=== PATIENT | female | born 1945 | race Caucasian/White ===

== ENCOUNTER → 2017-04-01 | Outpatient (CLI) | payer MEDICARE, OTHER ==
[~2017-04-01] MED LIST: ASPIR 8181 MG PO; ASPIRIN81 M2 PO; BENGAY GREASELE57 GM TOP; CARAFATE 1 GM TA1 G1 PO; CENTRUM SILVER1 EAC4 PO; ESCITALOPRAM OXA5 MG PO; LEXAPRO5 MG PO; MOBIC7.5 MG PO; PREVACID15 MG PO; PROTONIX 20 MG20 M1 PO; PROTONIX40 M1 PO; STATIN; TUMS PO; ZOCOR5 MG PO
== END ==
LOC: M.RAD 10:17
DX: R07.9 Chest pain, unspecified (principal); Z90.49 Acquired absence of other specified parts of digestive tract

== ENCOUNTER 2017-04-07 08:08 | Inpatient (IN) | payer MEDICARE, OTHER ==
[~2017-04-07] VITALS: Ht 160 cm; Wt 90.3 kg
--- NOTE | ~2017-04-07 | PROC ---
[address] [address] PROCEDURE REPORT Name: TRINITY CULLEN Room: [address] IN .R.#: [id number] Admission: 04/07/17 Attend Phys: Seamus Wong Discharge: 04/10/17 Date of : 45 Report #: [id number] THIS REPORT FOR: //name// For additional GI report details, please see the Provation report in Perceptive 7 content. By: 1327Medical Records Staff OTILIA /ALAN
[~2017-04-07 08:08] MED LIST changes: -BENGAY GREASELE57 GM TOP; -CARAFATE 1 GM TA1 G1 PO; -CENTRUM SILVER1 EAC4 PO; -LEXAPRO5 MG PO; -PREVACID15 MG PO; -PROTONIX40 M1 PO; -STATIN; -TUMS PO; -ZOCOR5 MG PO
[2017-04-07 08:11] VITALS: BP 136/70
[2017-04-07] MEDS ORDERED: CARAFATE 1 GM TA1 G1 PO (08:13)
[2017-04-07] MEDS ORDERED: LEXAPRO5 MG PO (08:14)
[2017-04-07] MEDS ORDERED: STATIN (08:14)
[2017-04-07] MEDS ORDERED: PREVACID15 MG PO (08:14)
[2017-04-07 08:35] LABS: ABSOLUTE EOSINOPHILS 0.1 thou/uL (0.0-0.7); EOSINOPHILS 1.4 %; NUCLEATED RBCS 0 /100WBC
[2017-04-07 08:38] LABS: ABSOLUTE BASOPHILS 0.1 thou/uL (0.0-0.2); ABSOLUTE MONOCYTES 0.5 thou/uL (0.0-1.2); BASOPHILS 0.8 %; HEMATOCRIT 39.5 % (37.0-47.0); HEMOGLOBIN 14.1 gm/dL (12.0-15.0); LYMPHOCYTES 34.3 %; MCH 32.1 pg (26.0-34.0); MCHC 35.7 g/dL (28.0-37.0); MCV 90.1 fL (80.0-100.0); MONOCYTES 5.9 %; PLATELET COUNT* 244 thou/uL (150-400); POLYS 57.6 %; RBC 4.39 mil/uL (4.20-5.00); RDW-CV 14.2 % (10.5-14.5); WBC 8.8 thou/uL (4.0-11.0)
[2017-04-07 08:47] LABS: APTT 24.3 Seconds (25.0-31.3); INR 1.1; PROTIME 10.6 Seconds (9.20-11.50)
[2017-04-07 08:49] LABS: ANION GAP 9 mmol/L (7-16); BUN 16 mg/dL (7-18); CALCIUM 9.2 mg/dL (8.5-10.1); CHLORIDE 103 mmol/L (98-107); CO2 25 mmol/L (21-32); CREATININE 1.1 mg/dL (0.6-1.3); GLUCOSE 133 mg/dL (70-99); POTASSIUM 3.6 mmol/L (3.5-5.1); SODIUM 137 mmol/L (136-145)
[2017-04-07 08:53] LABS: ALBUMIN 3.7 g/dL (3.4-5.0); ALKALINE PHOSPHATASE 54 U/L (46-116); NT-PRO BRAIN NAT PEPTIDE 19 pg/mL (<300); SGOT 15 U/L (15-37); SGPT 24 U/L (30-65); TOTAL BILIRUBIN 0.4 mg/dL (<0.1-1.0); TOTAL PROTEIN 7.4 g/dL (6.4-8.2); TROPONIN-I LEVEL <0.06 ng/mL (<0.06)
--- NOTE | 2017-04-07 14:33 | EKG ---
[place] [address] ELECTROCARDIOGRAM REPORT Name: TRINITY CULLEN Room: [place] [address] ADM IN [facility]#: [id number] Admission: 04/07/17 Attend Phys: Seamus Wong Discharge: Date of : 45 Report #: [id number] THIS REPORT FOR: //name// [facility] ED Test Date: 2017-04-07 Test Time: 08:13:31 Pat Name: TRINITY OHARALEY Department: Room: [facility] Gender: F Composition Worker: Ngozi LEE : 1945 Requested By: Estrella Hernandez Order Number: [id number] MD: Alfonzo Garcia Measurements Intervals [place] Rate: 73 P: 53 MD: 151 QRS: 23 QRSD: 99 T: 31 QT: 394 QTc: 435 Interpretive Statements Sinus rhythm No previous ECG available for comparison Electronically Signed On 04-07-2017 14:33:38 SOFTWARE DEVELOPER CONSULTANT by Alfonzo Garcia [email or web address] <ELECTRONICALLY SIGNED> By: Alfonzo Garcia MD, [facility] 04/07/17 1433 0813 2 Alfonzo Garcia MD, FACC /EPI
[2017-04-07 17:15] VITALS: BP 123/74
[2017-04-07 17:50] VITALS: BP 131/80
[2017-04-07] MEDS ORDERED: ZOCOR5 MG PO (17:59)
[2017-04-07] MEDS ORDERED: CENTRUM SILVER1 EAC4 PO (18:00)
[2017-04-07 20:00] VITALS: BP 129/73
[2017-04-08 00:26] VITALS: BP 103/60
[2017-04-08 04:24] VITALS: BP 101/59
[2017-04-08 08:00] VITALS: BP 109/49
[2017-04-08 11:30] VITALS: BP 115/55
[2017-04-08 15:47] VITALS: BP 124/55
[2017-04-09 00:24] VITALS: BP 100/59
[2017-04-09 07:35] VITALS: BP 115/62
[2017-04-09 11:30] VITALS: BP 100/59; BP 126/70
[2017-04-09 16:00] VITALS: BP 105/44
[2017-04-10] VITALS: BP 108/59
[2017-04-10 04:50] LABS: HEMATOCRIT 39.1 % (37.0-47.0); HEMOGLOBIN 13.1 gm/dL (12.0-15.0); MCHC 33.5 g/dL (28.0-37.0); MPV 9.9 fl. (7.2-11.1); RBC 4.09 mil/uL (4.20-5.00); RDW-CV 14.4 % (10.5-14.5)
[2017-04-10 04:56] LABS: MCV 95.5 fL (80.0-100.0)
[2017-04-10 05:05] LABS: CALCIUM 8.8 mg/dL (8.5-10.1); CREATININE 0.7 mg/dL (0.6-1.3); POTASSIUM 4.5 mmol/L (3.5-5.1)
[2017-04-10 08:15] VITALS: BP 117/55
[2017-04-10 09:30] VITALS: BP 108/59
[2017-04-10] MEDS ORDERED: PROTONIX40 M1 PO (10:04)
[2017-04-10] MEDS ORDERED: TUMS PO (10:05)
[2017-04-10] MEDS ORDERED: BENGAY GREASELE57 GM TOP (10:06)
--- NOTE | 2017-04-16 16:13 | CON ---
[address] [address] CONSULTATION Name: TRINITY CULLEN Room: [address] IN M.R.#: [id number] Admission: 04/07/17 Attend Phys: Seamus Wong Discharge: 04/10/17 Date of : 45 Report #: [id number] THIS REPORT FOR: //name// CC: Rosy Rodriguez DATE OF SERVICE: 04/08/2017 ADDENDUM TO CONSULTATION CONSULTATION NUMBER: [id number]. I have personally seen and examined the patient and reviewed labs and imaging. The patient with symptoms of nausea and odynophagia, who has remote history of H. pylori dating back to 20 some years ago. She also has symptoms of constipation. We will go ahead and consider an EGD tomorrow. The patient was scheduled for upper and lower endoscopy as outpatient. Once we clear her upper endoscopy, we will consider colonoscopy as outpatient. Meanwhile, she is on Protonix and Carafate, which we will continue. <ELECTRONICALLY SIGNED> By: Brinda Ortez MD 04/16/17 1613 1553 [id number] Ortez MD /nt
--- NOTE | 2017-04-16 16:13 | CON ---
[address] [address] CONSULTATION Name: TRINITY CULLEN Room: [address] IN .R.#: [id number] Admission: 04/07/17 Attend Phys: Seamus Wong Discharge: 04/10/17 Date of : 45 Report #: [id number] THIS REPORT FOR: //name// CC: Rosy Childers DO Kalpesh Rodriguez DICTATED BY: Yady Avendano [facility] DATE OF SERVICE: 04/08/2017 PRIMARY CARE PHYSICIAN: Dr. Rosy Childers. Please note at the time of this dictation, the patient was seen and physically examined by myself. REASON FOR CONSULTATION: Odynophagia and epigastric pain. History of H. pylori and esophageal ulcers in the past. HISTORY OF PRESENT ILLNESS: This is a 71-year-old female who presented to the Emergency Room with having this ongoing chest discomfort, which has progressively gotten worse in severity and stabbing like pain. She states it starts in her back and moves forward to the front and then it started radiating down her arm, which was concerning for her. Her PCP put her on Carafate along with her Protonix a week ago and at that time, she scheduled an outpatient procedure with Dr. Ortez on 04/21/2017 to have an EGD and a colonoscopy. The colonoscopy was for surveillance since she has never had one before. The patient, like I said earlier, had an EGD 20+ years ago that said that she was positive for H. pylori, in which she states that she had that on two different occasions. She also had a colonoscopy about 15 years ago. She does not recall where it was, but everything was normal at that time. ALLERGIES: SULFA AGGRENOX, TRAMADOL AND ASPIRIN. MEDICATIONS: From home include Carafate, Prevacid, Lexapro, Zocor and Centrum. PAST MEDICAL HISTORY: She has had a TIA x 2 and some acid reflux in the past and hyperlipidemia. PAST SURGICAL HISTORY: Hysterectomy and cholecystectomy. She has had a right foot surgery, also then broke her right foot again this past 02/2017. She has had a lumpectomy and a history of kidney stones. FAMILY HISTORY: Noncontributory for any GI or female cancers. SOCIAL HISTORY: She does smoke a pack a day and quit more than [place] [address] CONSULTATION Name: TRINITY CULLEN Silvia Room: [address]#: [id number] Admission: 04/07/17 Attend Phys: Seamus Wong Discharge: 04/10/17 Date of : 45 Report #: [id number] Alcohol on special occasions and denies any illegal drug use. REVIEW OF SYSTEMS: Twelve-point review of systems is essentially negative except what is mentioned in the HPI. PHYSICAL EXAMINATION: VITAL SIGNS: Temperature 36.6, pulse 62, respirations 18, blood pressure 109/49. HEART: Regular rate and rhythm. LUNGS: Clear. ABDOMEN: Soft, positive bowel sounds in all 4 quadrants with no masses. Some very slight epigastric but more back pain than anything else. LABORATORY DATA: Hemoglobin is 14.1, hematocrit 39.5, white count is 8.8, platelets 244. Sodium 137, potassium 3.6, chloride 103, CO2 of 25, BUN is 11, creatinine is 1.1, GFR is 49 and glucose is 133. The patient did have a CT of the abdomen and pelvis that showed diverticulosis of the colon and a previous cholecystectomy, otherwise negative. IMPRESSION: 1. Odynophagia. 2. History of H. pylori 20 years ago and treated. 3. Nausea, improved. 4. Constipation. PLAN: 1. EGD tomorrow with Dr. Ortez. 2. Continue Protonix and Carafate. 3. Dulcolax tablets 2 tablets now for her constipation. 4. Further recommendations to be made after the EGD. 5. The patient will keep her outpatient colonoscopy that is already scheduled for 04/21/2017. Thank you for allowing us to participate in this patient's care. Please do not hesitate to call with any questions in regard to this consult. ADDENDUM I have personally seen and examined the patient and reviewed labs and imaging. The patient with symptoms of nausea and odynophagia, who has remote history of H. pylori dating back to 20 some years ago. She also has symptoms of constipation. We will go ahead and consider an EGD tomorrow. The patient was scheduled for upper and lower endoscopy as outpatient. Once we clear her upper [address] [address] CONSULTATION Name: TRINITY CULLEN Room: [address] IN ..#: [id number] Admission: 04/07/17 Attend Phys: Seamus Wong Discharge: 04/10/17 Date of : 45 Report #: [id number] endoscopy, we will consider colonoscopy as outpatient. Meanwhile, she is on Protonix and Carafate, which we will continue. <ELECTRONICALLY SIGNED> By: Brinda Ortez MD 04/16/17 1613 1139 1222Brinda Ortez MD /nt
== END 2017-04-10 11:45 | disposition home or self-care (01) | DRG 392 ==
LOC: M.ERS 08:08 → M.TBA-ER 12:59 → M.2W 12:59 → M.3W 04-08 18:40
PROVIDERS: Personal Emergency Response Attendant; ADMIT Internal Medicine
PROC: 0D758ZZ Dilation of Esophagus, Via Natural or Artificial Opening Endoscopic (ICD-10-PCS; principal; 2017-04-09)
DX: K22.2 Esophageal obstruction (principal); K29.00 Acute gastritis without bleeding; K21.9 Gastro-esophageal reflux disease without esophagitis; E78.5 Hyperlipidemia, unspecified; R13.10 Dysphagia, unspecified; K59.00 Constipation, unspecified; K27.9 Peptic ulcer, site unspecified, unspecified as acute or chronic, without hemorrhage or perforation; I10 Essential (primary) hypertension; M19.90 Unspecified osteoarthritis, unspecified site; K44.9 Diaphragmatic hernia without obstruction or gangrene; K22.4 Dyskinesia of esophagus; K57.90 Diverticulosis of intestine, part unspecified, without perforation or abscess without bleeding; Z86.73 Personal history of transient ischemic attack (TIA), and cerebral infarction without residual deficits; Z90.710 Acquired absence of both cervix and uterus; Z90.49 Acquired absence of other specified parts of digestive tract; Z88.6 Allergy status to analgesic agent; Z88.2 Allergy status to sulfonamides; Z88.8 Allergy status to other drugs, medicaments and biological substances; Z87.442 Personal history of urinary calculi; Z87.891 Personal history of nicotine dependence; Z23 Encounter for immunization

== ENCOUNTER 2021-01-30 18:17 | Emergency (ER) | payer MEDICARE, OTHER ==
[~2021-01-30] VITALS: Ht 160 cm; Wt 86.2 kg
[~2021-01-30 18:17] MED LIST changes: +BENGAY GREASELE57 GM TOP; +CARAFATE 1 GM TA1 G1 PO; +CENTRUM SILVER1 EAC4 PO; +LEXAPRO5 MG PO; +PREVACID15 MG PO; +PROTONIX40 M1 PO; +STATIN; +TUMS PO; +ZOCOR5 MG PO
[2021-01-30 19:34] LABS: ABSOLUTE BASOPHILS 0.1 thou/uL (0.0-0.2); ABSOLUTE EOSINOPHILS 0.2 thou/uL (0.0-0.7); ABSOLUTE MONOCYTES 1.2 thou/uL (0.0-1.2); ABSOLUTE NEUTROPHILS 5.4 thou/uL (1.6-8.1); BASOPHILS 0.9 %; EOSINOPHILS 2.2 %; HEMOGLOBIN 11.5 gm/dL (12.0-15.0); LYMPHOCYTES 30.6 %; MCH 32.5 pg (26.0-34.0); MCHC 33.9 g/dL (28.0-37.0); MCV 96.1 fL (80.0-100.0); MONOCYTES 11.8 %; NUCLEATED RBCS 0 /100WBC; PLATELET COUNT* 272 thou/uL (150-400); POLYS 54.5 %; RBC 3.54 mil/uL (4.20-5.00); RDW-CV 15.5 % (10.5-14.5); WBC 9.8 thou/uL (4.0-11.0)
[2021-01-30 19:42] LABS: CALCIUM 7.8 mg/dL (8.5-10.1); CREATININE 0.9 mg/dL (0.6-1.3); POTASSIUM 3.8 mmol/L (3.5-5.1)
[2021-01-30] MEDS ORDERED: ZOFRAN ODT4 MG PO (20:18)
[2021-01-30 20:28] VITALS: BP 121/43
== END 2021-01-30 20:29 | disposition home or self-care (01) ==
LOC: M.ERS 18:17
PROVIDERS: Emergency Medicine
DX: B34.9 Viral infection, unspecified (principal); Z20.822 Contact with and (suspected) exposure to COVID-19; R11.2 Nausea with vomiting, unspecified; K21.9 Gastro-esophageal reflux disease without esophagitis; Z71.1 Person with feared health complaint in whom no diagnosis is made; Z90.710 Acquired absence of both cervix and uterus; Z90.49 Acquired absence of other specified parts of digestive tract; Z79.899 Other long term (current) drug therapy; Z88.6 Allergy status to analgesic agent; Z88.2 Allergy status to sulfonamides; Z88.5 Allergy status to narcotic agent